=== PATIENT | female | born 1995 | race Caucasian/White ===

== ENCOUNTER 2022-05-25 06:46 | Emergency (ER) | payer OTHER ==
[~2022-05-25] VITALS: Ht 160 cm; Wt 69.8 kg
[2022-05-25] MEDS ORDERED: PENICILLIN V P500 MG PO (07:56)
--- NOTE | 2022-05-26 13:11 | EKG ---
[facility] [address] [facility] [place] [address] Signed Normal sinus rhythm Normal ECG No previous ECGs available Confirmed by AMENA CAMPA MD ([id number] on 05/26/2022 1:11:04 PM Electronically Signed By: AMENA CAMPA MD 05/26/22 1311 PATIENT NAME: RUPINDER GODINEZ Electrocardiogram DATE OF : [birth year] PHYSICIAN: AMENA CAMPA MD REPORT #: [id number] REPORT IS CONFIDENTIAL AND NOT TO BE RELEASED WITHOUT AUTHORIZATION
== END 2022-05-25 08:09 | disposition home or self-care (01) ==
LOC: ED 06:46
DX: R10.9 Unspecified abdominal pain (principal); K08.89 Other specified disorders of teeth and supporting structures
CPT/HCPCS: 36415; 71045; 80053; 83690; 84703; 85025; 93005; 93010; 99285-25; A9270

== ENCOUNTER 2024-07-14 07:48 | Emergency (ER) | payer OTHER ==
[~2024-07-14] VITALS: Ht 160 cm; Wt 65.5 kg
[~2024-07-14 07:48] MED LIST: PENICILLIN V P500 MG PO
[2024-07-14] MEDS ORDERED: LISDEXAMFETAMIN40 MG PO (07:54)
[2024-07-14] MEDS ORDERED: LISDEXAMFETAMIN60 MG PO (07:54)
[2024-07-14 08:25] LABS: BASOPHILS 0.2 % (0-2); EOSINOPHILS 1.1 % (0-6); HEMATOCRIT 37.4 % (35.0-50.0); HEMOGLOBIN 13.3 g/dL (12.0-18.0); MCH 31.2 (27-36); MCHC 35.6 g/dl (30-36); MCV 87.6 fl (81-99); MONOCYTES 5.8 % (0-12); NEUTROPHILS 79.9 % (39-80); PLATELET COUNT 235 K/uL (140-440); RBC 4.27 M/ul (4.3-5.7); RDW 12.3 (10.5-15.0)
[2024-07-14] MEDS ORDERED: SODIUM CHLORIDE 0.9% 1,000 ML IV PRN (08:30)
[2024-07-14] MEDS ORDERED: MECLIZINE HCL 25 MG TAB PO ONE (08:30)
[2024-07-14] MEDS ORDERED: ondansetron HCL 4 MG/2 ML VIAL IV ONE (08:30)
[2024-07-14 08:41] LABS: ALBUMIN 3.8 g/dL (3.4-5.0); ALBUMIN/GLOBULIN RATIO 1.19 (1.1-2.4); BILIRUBIN, TOTAL 0.3 ng/dL (0.2-1.0); BUN/CREATININE RATIO 16.17 (6.0-28.6); CALCIUM 8.7 mg/dL (8.5-10.1); CREATININE, SERUM 0.68 mg/dL (0.55-1.02)
[2024-07-14] MEDS ORDERED: MECLIZINE HCL25 MG PO (09:50)
[2024-07-14] MEDS ORDERED: ONDANSETRON ODT4 MG PO (09:50)
[2024-07-14 09:57] VITALS: BP 111/91
== END 2024-07-14 09:57 | disposition home or self-care (01) ==
LOC: ED 07:48
PROVIDERS: Emergency Medicine
DX: R42 Dizziness and giddiness (principal)
CPT/HCPCS: 36415; 80053; 84703; 85025; 96374; 99284-25; A9270; J2405; J7030